=== PATIENT | male | born 1980 | race Caucasian/White ===

== ENCOUNTER 2018-05-03 06:05 | Day surgery (SDC) | payer MEDICAID ==
[2018-04-19 10:43] VITALS: BMI 28.3
[2018-05-03] MEDS ORDERED: Midazolam 2 MG/2 ML VIAL ONE (08:01)
[2018-05-03] MEDS ORDERED: Propofol 10 mg/ml Inj (20 ML) ONE (08:01)
[2018-05-03] MEDS ORDERED: Succinylcholine Chloride 20 mg/ml Syr (5 ml) IV ONE (08:03)
[2018-05-03] MEDS ORDERED: ceFAZolin IV 2 gm in Dextrose 2 GM/50 ML BAG IVPB ONE (09:00)
[2018-05-03] MEDS ORDERED: Lidocaine/Epinephrine 1% 1:100000 10 ML IJ ONE (09:07)
[2018-05-03] MEDS ORDERED: Bupivacaine 0.25% 20 ML INJ IJ ONE ×2 (09:07→09:52)
[2018-05-03] MEDS ORDERED: Bupivacaine Liposomal Inj 20 ml INFIL ONE (09:20)
[2018-05-03] MEDS ORDERED: Neostigmine Methylsulfate 3mg/3ml Syringe IV ONE (09:52)
--- NOTE | 2018-05-03 10:33 | PCM.SURG1 ---
Surgeon's Initial Post Op Note - Surgeon's Notes Surgeon: Dr. Mckoy Custom Home Installer: Dr. Chaney PGY-3 Type of Anesthesia: General Endo Anesthesia Administered By: Dr. Anguiano Pre-Operative Diagnosis: Cholecystitis Operative Findings: See operative report Post-Operative Diagnosis: Same Operation Performed: 1) Robotic assisted Cholecystectomy. 2) TAP Block Specimen/Specimens Removed: Gallbladder Estimated Blood Loss: EBL {In ML}: 5 Blood Products Given: N/A Drains Used: No Drains Post-Op Condition: Good Date of Surgery/Procedure: 05/03/18 Time of Surgery/Procedure: 10:32
[2018-05-03] MEDS: HYDROmorphone 0.5 mg/0.5 ml ISec IVP PRN ×5 (10:46→11:22)
[2018-05-03] MEDS ORDERED: Oxycodone/Acetaminophen 5/325 mg Tab PO PRN (11:14)
[2018-05-03 12:15] VITALS: BP 150/84; PULSE 81; RESP 18; TEMP 97; O2SAT 100
--- NOTE | 2018-05-03 12:26 | OP ---
PROCEDURE DATE: 05/03/2018 PREOPERATIVE DIAGNOSIS: Gallbladder polyp. POSTOPERATIVE DIAGNOSIS: Gallbladder polyp. PROCEDURE PERFORMED: Robotic cholecystectomy. SURGEON: Cody Mckoy MD ASSISTANTS: FRANKY Olivera and Sissy Chaney, PGY3 Resident ANESTHESIA: General endotracheal tube anesthesia. ESTIMATED BLOOD LOSS: Around 5 mL. DRAIN: None. PATHOLOGY: The gallbladder was sent for the pathology. COMPLICATIONS: None. INTRAOPERATIVE FINDINGS: The patient had some thickening of the gallbladder with a possible gallbladder polyp and on intraoperative steps, this is a 37-year-old male who was diagnosed with gallbladder polyp and the patient was consented for the robotic cholecystectomy, possible open, brought to the OR, placed supine on the operating table. After induction of anesthesia, the abdomen was prepped and draped in the usual sterile fashion. Supraumbilical transverse incision was made and the robotic camera port was placed. Another 3-8 mm port was placed in upper abdomen. Robot was brought in. Camera arm as well as arm 1 and arm 2 was docked and the gallbladder was retracted cranially. There was no peritoneal adhesions to the gallbladder and the gallbladder and Calot's triangle dissection was done. Cystic duct and cystic artery was identified. Top-down approach was done. Intraoperative Firefly was used and the cystic duct and cystic artery was clipped at three places and cut in between two clips nearby gallbladder and gallbladder was dissected free from the gallbladder fossa, taken in EndoCatch bag, taken out through the umbilical port site and sent off the table for the pathology. There was a proper hemostasis in each and every part of the procedure. The second procedure is a laparoscopic bilateral TAP block placement. After completion of the robotic procedure, the right and left side 30:30 mL of Marcaine was injected in the transverse abdominal muscle area and after proper TAP block, all the ports were taken out under vision. Pneumo was deflated. All the umbilical port site was closed in two-layer, the fascia with 0 Vicryl, skin with a 4-0 Monocryl. At all the port sites, a dry sterile dressing was applied. The patient was extubated in OR, sent to the postanesthesia care unit in stable condition. Cody Mckoy MD
== END 2018-05-03 13:46 | disposition home or self-care (01) ==
LOC: C.SDS 06:05
PROVIDERS: ATTEND Surgery Surgical Critical Care
DX: K82.4 Cholesterolosis of gallbladder (principal)
CPT/HCPCS: 47562; 88304; J0690; J1170; J2001; J2250; J2405; J2704; J2710; J3010

== ENCOUNTER 2018-08-09 09:14 | Outpatient (CLI) | payer MEDICAID | END 2018-08-09 09:15 | disposition home or self-care (01) | LOC: C.CTH 09:14 | DX: R10.9 Unspecified abdominal pain (principal) ==

== ENCOUNTER 2018-08-23 08:56 | Day surgery (SDC) | payer MEDICAID ==
[2018-08-22 13:43] VITALS: BMI 26.4
[2018-08-23] MEDS ORDERED: Propofol 10 mg/ml Inj (20 ML) ONE (10:39)
[2018-08-23] MEDS ORDERED: Lidocaine Hydrochloride 5 ML INJ ONE (10:39)
[2018-08-23] MEDS ORDERED: Midazolam 2 MG/2 ML VIAL ONE (10:39)
--- NOTE | 2018-08-23 10:49 | CP.SDSHP ---
Same Day Surgery H & P - History Proposed Procedure: EGD Pre-Op Diagnosis: abdominal pain, vomiting - Previous Medical/Surgical History Comments: HBV - Allergies Allergies: Allergies No Known Allergies Allergy (Verified 04/19/18 10:41) - Physical Exam General Appearance: NAD Vital Signs: Vital Signs 08/23/18 09:15 Temperature 98.6 F Pulse Rate 71 Respiratory 18 Rate Blood Pressure 123/77 O2 Sat by Pulse 97 Oximetry Mental Status: Alert & Oriented x3 Neuro: WNL Heart: WNL Lungs: WNL GI: WNL - {Optional Preform as Required} Abdomen: WNL - Impression Pt. Evaluated Today:Candidate for Anesthesia & Procedure: Yes - Date & Time Date: 08/23/18 Time: 10:49 Short Stay Discharge - Short Stay Discharge Admitting Diagnosis/Reason for Visit: VOMITING Disposition: HOME/ ROUTINE
[2018-08-23] MEDS ORDERED: Lactated Ringer's 500 ML IV ONE (10:55)
[2018-08-23 11:24] VITALS: TEMP 97.3
[2018-08-23 12:43] VITALS: BP 112/70; PULSE 69; RESP 12; O2SAT 96
== END 2018-08-23 12:40 | disposition home or self-care (01) ==
LOC: C.ENDO 08:56
PROVIDERS: ATTEND Internal Medicine Gastroenterology
DX: K20.9 Esophagitis, unspecified (principal); K29.50 Unspecified chronic gastritis without bleeding
CPT/HCPCS: 43239; 88305; 88312; 88313; 88342; J2250; J2704; J3010; J7120